=== PATIENT | male | born 1945 | race Caucasian/White ===

== ENCOUNTER 2021-06-23 08:35 | Inpatient (IN) ==
[2021-06-23] MEDS ORDERED: *HR* EPINEPHrine 1 MG/10 ML SYRINGE IVP ONE (08:50)
[2021-06-23] MEDS ORDERED: cefTRIAXone 1,000 MG in 0.9 % Sodium Chloride 10 ML IVP ONE (09:00)
[2021-06-23] MEDS ORDERED: Azithromycin 500 MG in 0.9 % Sodium Chloride 250 ML IVPB ONE (09:00)
[2021-06-23] MEDS ORDERED: Ipratropium/Albuterol Neb 3 ML IH ONE (09:01)
[2021-06-23] MEDS ORDERED: methylPREDNISolone 125 MG/2 ML VIAL IVP ONE (09:02)
[2021-06-23 09:15] LABS: VBG HCO3 13 mEq/L (21-27); VBG PCO2 45 mmHg (41-51); VBG PH 7.07 pH Units (7.32-7.42); VBG PO2 40 mmHg (25-50)
[2021-06-23 09:17] LABS: Hematocrit 45.3 % (37.5-50.1); Hemoglobin 15.2 g/dL (12.9-16.9); Lymphocytes # 5.5 K/mcL (0.6-4.6); Mean Corpuscular HGB Conc 33.6 g/dL (31.6-35.5); Mean Corpuscular Volume 107.3 fL (83.0-100.0); Mean Platelet Volume 12.1 fL (9.4-12.4); Platelet Count 136 K/mcL (140-400); Red Blood Count 4.22 M/mcL (4.19-5.50); Red Cell Distribution Width 13.6 % (11.5-14.5); White Blood Count 15.6 K/mcL (4.3-11.1)
[2021-06-23] MEDS: 0.9 % Sodium Chloride 1,000 ML IVC SCH ×2 (09:22→13:42)
[2021-06-23 09:26] LABS: INR 1.8
[2021-06-23] MEDS ORDERED: Isovue-370 500 ML BOTTLE IVP ONE ×2 (09:27→11:12)
[2021-06-23 09:28] LABS: Activated Partial Thrombo Time 35.5 Seconds (26.0-36.0)
[2021-06-23 09:39] LABS: Albumin 4.3 g/dL (3.5-5.7); Albumin/Globulin Ratio 2.4 (1.1-2.2); Bilirubin,Direct 0.8 mg/dL (0.0-0.2); Bilirubin,Indirect 1.8 mg/dL (0.0-1.0); Bilirubin,Total 2.6 mg/dL (0.3-1.0); Calcium 9.5 mg/dL (8.6-10.3); Globulin 1.8 g/dL (2.4-3.5); Magnesium 2.4 mg/dL (1.6-2.6); Phosphorous 6.8 mg/dL (2.7-4.5); Total Protein 6.1 g/dL (6.4-8.9); Troponin I 0.04 ng/mL (< 0.04)
[2021-06-23 09:45] LABS: Eosinophils # 0.2 K/mcL (0.0-0.6); Monocytes # 0.3 K/mcL (0.0-1.3); Neutrophils # 9.7 K/mcL (1.6-8.9)
[2021-06-23 09:46] LABS: Platelet Estimate Slight Decrease (Normal)
[2021-06-23 09:48] LABS: Large Platelets Present (Not Present)
[2021-06-23 09:49] LABS: Reactive Lymphocytes Present (Not Present)
[2021-06-23] MEDS ORDERED: Ondansetron 4 MG/2 ML VIAL IVP ONE (09:59)
[2021-06-23] MEDS ORDERED: *HR* FentaNYL (PF) 100 MCG/2 ML VIAL ONE (11:02)
[2021-06-23] MEDS ORDERED: Furosemide 40 MG/4 ML VIAL IVP ONE ×2 (11:09→23:04)
[2021-06-23] MEDS ORDERED: Perflutren Lipid Microsphere 1.3 ML in 0.9 % Sodium Chloride 8.7 ML IVP PRN (11:09)
[2021-06-23 11:14] LABS: ABG Base Excess -20 mEq/L (-2 to 3); ABG HCO3 11 mEq/L (21-27); ABG Oxygen Saturation 90 % (95-98); ABG PCO2 43 mmHg (35-45); ABG PH 7.01 pH Units (7.32-7.45); ABG PO2 87 mmHg (85-104); ABG TCO2 12 mEq/L (20-26); Blood Gas Modality ASSIST CONTROL; Blood Gas VT 450 cc
[2021-06-23] MEDS: Dexmedetomidine HCl 400 MCG/100 ML MLS IVC SCH ×3 (12:02→18:48)
[2021-06-23] MEDS ORDERED: Artificial Tears SOLN 15 ML BOTTLE BOTH EYES PRN (12:44)
[2021-06-23] MEDS ORDERED: Naloxone 0.4 MG/ML INJ IVP PRN (12:44)
[2021-06-23] MEDS ORDERED: Albuterol 2.5 MG/3 ML NEBULIZER IH PRN (12:50)
[2021-06-23] MEDS ORDERED: Vancomycin (wt based) 1,000 MG VIAL IVPB SCH (13:00)
[2021-06-23] MEDS: FentaNYL (PF) 1,000 MCG/100 ML IV.SOLN IVC SCH ×2 (13:33→19:21)
[2021-06-23] MEDS ORDERED: Sodium Bicarbonate 50 MEQ/50 ML VIAL IVP ONE (14:02)
[2021-06-23 14:17] LABS: Bilirubin,Urine Negative (Negative); Blood,Urine Large (Negative); Clarity,Urine Clear (Clear); Color,Urine Light-Yellow (Yellow); Glucose,Urine (UA) Normal (Normal); Granular Casts,Urine Few per lpf (None Seen); Hyaline Casts,Urine Moderate per lpf (None Seen); Ketones,Urine Negative (Negative); Leukocyte Esterase,Urine Negative (Negative); Mucus,Urine Few per lpf (None-Few); Nitrite,Urine Negative (Negative); Protein,Urine 50 mg/dL (Neg-Trace); RBC,Urine TNTC per hpf (0-3); Specific Gravity,Urine 1.018 (1.010-1.025); Sperm,Urine Present per hpf (None Seen); Squamous Epithelial Cell,Urine Few per hpf (None-Few); Transitional Epi Cells,Urine Few per hpf (None-Few); Urobilinogen,Urine Normal (Normal); WBC,Urine 0-3 per hpf (0-3)
[2021-06-23] MEDS ORDERED: *HR* Midazolam HCl 5 MG/5 ML VIAL IVP ONE ×3 (14:23→21:07)
[2021-06-23] MEDS ORDERED: Amiodarone Premix 150 MG/100 ML BAG IVPB ONE (15:59)
[2021-06-23] MEDS ORDERED: Amiodarone Premix 360 MG/200 ML BAG IVC ONE (15:59)
[2021-06-23] MEDS: Ipratropium/Albuterol Neb 3 ML IH SCH ×2 (16:04→20:51)
[2021-06-23] MEDS ORDERED: *HR* Heparin 5,000 UNIT/ML VIAL IVP PRN ×2 (17:35)
[2021-06-23] MEDS ORDERED: *HR* Heparin 5,000 UNIT/ML VIAL IVP ONE (17:35)
[2021-06-23] MEDS: methylPREDNISolone 125 MG/2 ML VIAL IVP SCH (17:44)
[2021-06-23] MEDS: Piperacillin/Tazobactam 3.375 GM in 0.9 % Sodium Chloride Mini Bag 100 ML IVPB SCH ×2 (17:46→23:09)
[2021-06-23] MEDS ORDERED: *HR* Heparin 5,000 UNIT/ML VIAL SQ SCH (18:00)
[2021-06-23] MEDS: Heparin 25,000UNIT/250ML 1/2NS 25,000 UNIT/250 ML IV.SOLN IVC SCH (18:26)
[2021-06-23] MEDS ORDERED: Dexmedetomidine HCl 400 MCG/100 ML MLS IVC ONE (18:31)
[2021-06-23] MEDS: Pantoprazole 40 MG VIAL IVP SCH (20:23)
[2021-06-23] MEDS: Artificial Tears SOLN 15 ML BOTTLE BOTH EYES SCH ×3 (20:23→23:09)
[2021-06-23 20:55] LABS: Influenza A PCR Negative (Negative); Influenza B PCR Negative (Negative); Resp. Syncytial Virus PCR Negative (Negative)
[2021-06-23 21:00] LABS: SARS-CoV-2 by PCR (In House) Negative (Negative)
[2021-06-23 21:54] LABS: ABG Base Excess -5 mEq/L (-2 to 3); ABG HCO3 19 mEq/L (21-27); ABG Oxygen Saturation 98 % (95-98); ABG PCO2 29 mmHg (35-45); ABG PH 7.41 pH Units (7.32-7.45); ABG PO2 98 mmHg (85-104); ABG TCO2 20 mEq/L (20-26); Blood Gas Modality AF; Blood Gas VT 450 cc
[2021-06-23] MEDS: Chlorhexidine Rinse 15 ML MOUTHWASH MM SCH (21:54)
[2021-06-23] MEDS: DOBUTamine 1,000 MG/250 ML BAG IVC SCH (21:56)
[2021-06-23 21:58] LABS: Basophils % 0.1 %; Immature Granulocytes % 0.4 % (0-4); Mean Corpuscular Hemoglobin 35.5 pg (28.0-33.3); Red Cell Distribution Width 13.4 % (11.5-14.5)
[2021-06-23 22:00] LABS: Hematocrit 40.4 % (37.5-50.1); Hemoglobin 13.8 g/dL (12.9-16.9); Immature Platelets 11.2 % (1.1-6.1); Lymphocytes # 2.6 K/mcL (0.6-4.6); Lymphocytes % 25.8 %; Mean Corpuscular HGB Conc 34.2 g/dL (31.6-35.5); Mean Corpuscular Volume 103.9 fL (83.0-100.0); Mean Platelet Volume 11.5 fL (9.4-12.4); Monocytes # 0.2 K/mcL (0.0-1.3); Monocytes % 2.4 %; Neutrophils # 7.2 K/mcL (1.6-8.9); Nucleated Red Blood Cells 0.2 /100 WBC (0); Red Blood Count 3.89 M/mcL (4.19-5.50); Segmented Neutrophils % 71.3 %; White Blood Count 10.1 K/mcL (4.3-11.1)
[2021-06-23 22:01] LABS: VBG Ionized Calcium 1.11 mmol/L (1.15-1.35)
[2021-06-23 22:07] LABS: INR 1.9; Prothrombin Time 21.1 Seconds (9.4-12.1)
[2021-06-23 22:10] LABS: Heparin anti-factor XA UFH 1.47 IU/mL (0.30-0.70)
[2021-06-23 22:19] LABS: Albumin 3.4 g/dL (3.5-5.7); Albumin/Globulin Ratio 2.6 (1.1-2.2); Bilirubin,Direct 0.4 mg/dL (0.0-0.2); Bilirubin,Indirect 0.8 mg/dL (0.0-1.0); Bilirubin,Total 1.2 mg/dL (0.3-1.0); Calcium 8.8 mg/dL (8.6-10.3); Globulin 1.3 g/dL (2.4-3.5); Magnesium 2.5 mg/dL (1.6-2.6); Potassium 4.2 mEq/L (3.5-5.1); Total Protein 4.7 g/dL (6.4-8.9)
[2021-06-23 22:20] LABS: Phosphorous 6.2 mg/dL (2.7-4.5)
[2021-06-23 22:23] LABS: Troponin I 0.05 ng/mL (< 0.04)
[2021-06-23 22:27] LABS: Activated Partial Thrombo Time > 360.0 Seconds (26.0-36.0)
[2021-06-23 22:30] LABS: Platelet Count 96 K/mcL (140-400); Smudge Cells Present (Not Present)
[2021-06-23] MEDS: Amiodarone Premix 360 MG/200 ML BAG IVC SCH (22:47)
[2021-06-24] MEDS: Ipratropium/Albuterol Neb 3 ML IH SCH ×6 (00:03→20:53)
[2021-06-24] MEDS: Dexmedetomidine HCl 400 MCG/100 ML MLS IVC SCH ×3 (02:22→14:34)
[2021-06-24 02:27] LABS: Basophils % 0.1 %; Hemoglobin 14.3 g/dL (12.9-16.9); Immature Granulocytes % 0.2 % (0-4); Lymphocytes # 2.5 K/mcL (0.6-4.6); Lymphocytes % 21.8 %; Mean Corpuscular HGB Conc 34.9 g/dL (31.6-35.5); Mean Corpuscular Hemoglobin 35.2 pg (28.0-33.3); Mean Platelet Volume 11.6 fL (9.4-12.4); Monocytes # 0.3 K/mcL (0.0-1.3); Monocytes % 2.7 %; Neutrophils # 8.4 K/mcL (1.6-8.9); Platelet Count 106 K/mcL (140-400); Red Blood Count 4.06 M/mcL (4.19-5.50); Red Cell Distribution Width 13.3 % (11.5-14.5); Segmented Neutrophils % 75.2 %; White Blood Count 11.2 K/mcL (4.3-11.1)
[2021-06-24 02:46] LABS: Albumin 3.5 g/dL (3.5-5.7); Albumin/Globulin Ratio 2.1 (1.1-2.2); Bilirubin,Direct 0.5 mg/dL (0.0-0.2); Bilirubin,Indirect 0.6 mg/dL (0.0-1.0); Bilirubin,Total 1.1 mg/dL (0.3-1.0); Calcium 8.8 mg/dL (8.6-10.3); Globulin 1.7 g/dL (2.4-3.5); Magnesium 2.3 mg/dL (1.6-2.6); Phosphorous 5.4 mg/dL (2.7-4.5); Potassium 3.5 mEq/L (3.5-5.1); Total Protein 5.2 g/dL (6.4-8.9)
[2021-06-24] MEDS: Artificial Tears SOLN 15 ML BOTTLE BOTH EYES SCH ×6 (03:25→23:45)
[2021-06-24] MEDS: FentaNYL (PF) 1,000 MCG/100 ML IV.SOLN IVC SCH ×2 (04:17→13:12)
[2021-06-24 04:22] LABS: ABG Base Excess 1 mEq/L (-2 to 3); ABG HCO3 25 mEq/L (21-27); ABG Oxygen Saturation 96 % (95-98); ABG PCO2 35 mmHg (35-45); ABG PH 7.46 pH Units (7.32-7.45); ABG PO2 77 mmHg (85-104); ABG TCO2 26 mEq/L (20-26); Blood Gas Modality AF; Blood Gas VT 450 cc
[2021-06-24] MEDS: methylPREDNISolone 125 MG/2 ML VIAL IVP SCH (04:59)
[2021-06-24] MEDS: Norepinephrine 4 MG/254 ML IV.SOLN IVC SCH (05:57)
[2021-06-24] MEDS ORDERED: *HR* Midazolam HCl 2 MG/2 ML VIAL IVP ONE (06:34)
[2021-06-24] MEDS ORDERED: *HR* Midazolam HCl 5 MG/5 ML VIAL IVP ONE (06:36)
[2021-06-24] MEDS: Pantoprazole 40 MG VIAL IVP SCH (07:30)
[2021-06-24] MEDS: Chlorhexidine Rinse 15 ML MOUTHWASH MM SCH ×2 (07:31→20:35)
[2021-06-24] MEDS: Piperacillin/Tazobactam 3.375 GM in 0.9 % Sodium Chloride Mini Bag 100 ML IVPB SCH ×3 (07:32→23:44)
[2021-06-24] MEDS ORDERED: *HR* Digoxin 0.5 MG/2 ML AMPUL IVP ONE (10:45)
[2021-06-24] MEDS: Amiodarone Premix 360 MG/200 ML BAG IVC SCH (10:46)
[2021-06-24] MEDS ORDERED: Potassium Chloride Elixir 20 MEQ/15 ML UDC GTUBE ONE (14:10)
[2021-06-24 15:06] LABS: Lactate Dehydrogenase 294 Units/L (140-271)
[2021-06-24 16:05] LABS: ABG PCO2 32 mmHg (35-45); ABG PH 7.36 pH Units (7.32-7.45); ABG PO2 200 mmHg (85-104)
[2021-06-24 16:06] LABS: ABG Base Excess -6 mEq/L (-2 to 3); ABG HCO3 18 mEq/L (21-27); ABG Oxygen Saturation 100 % (95-98); ABG TCO2 19 mEq/L (20-26)
[2021-06-24 18:24] LABS: Appearance of Pleural Fl Clear (Clear)
[2021-06-24 18:26] LABS: RBC,Pleural Fluid < 2000 RBC/mcL
[2021-06-24 18:45] LABS: Glucose,Pleural Fluid 140 mg/dL (No Ref Range); LDH,Pleural Fluid 74 Units/L (No Ref Range); Total Protein,Pleural Fluid < 2.0 g/dL
[2021-06-24] MEDS: Heparin 25,000UNIT/250ML 1/2NS 25,000 UNIT/250 ML IV.SOLN IVC SCH (19:51)
[2021-06-24 20:18] LABS: Basophils,Pleural Fluid 0 %; Eosinophils,Pleural Fluid 0 %
[2021-06-24] MEDS ORDERED: Vancomycin 1,500 MG/265 ML IV.SOLN IVPB ONE (21:28)
[2021-06-24] MEDS: Potassium Chloride 40 MEQ/200 ML BAG IVPB PRN ×2 (21:33→22:29)
[2021-06-24 21:36] LABS: Basophils % 0.1 %; Hematocrit 38.3 % (37.5-50.1); Hemoglobin 13.5 g/dL (12.9-16.9); Immature Granulocytes % 1.2 % (0-4); Lymphocytes % 16.6 %; Mean Corpuscular HGB Conc 35.2 g/dL (31.6-35.5); Mean Corpuscular Hemoglobin 35.3 pg (28.0-33.3); Mean Corpuscular Volume 100.3 fL (83.0-100.0); Mean Platelet Volume 11.1 fL (9.4-12.4); Monocytes # 0.4 K/mcL (0.0-1.3); Monocytes % 3.5 %; Neutrophils # 9.2 K/mcL (1.6-8.9); Platelet Count 111 K/mcL (140-400); Red Blood Count 3.82 M/mcL (4.19-5.50); Red Cell Distribution Width 13.7 % (11.5-14.5); Segmented Neutrophils % 78.6 %; White Blood Count 11.7 K/mcL (4.3-11.1)
[2021-06-24 21:53] LABS: Calcium 8.5 mg/dL (8.6-10.3); Potassium 3.1 mEq/L (3.5-5.1)
[2021-06-24] MEDS ORDERED: Furosemide 20 MG/2 ML VIAL IVP ONE (23:06)
[2021-06-25] MEDS: Ipratropium/Albuterol Neb 3 ML IH SCH ×6 (00:40→20:29)
[2021-06-25] MEDS: Amiodarone Premix 360 MG/200 ML BAG IVC SCH ×2 (00:53→12:40)
[2021-06-25 03:27] LABS: Hematocrit 38.5 % (37.5-50.1); Hemoglobin 13.5 g/dL (12.9-16.9); Immature Granulocytes % 0.7 % (0-4); Lymphocytes # 2.1 K/mcL (0.6-4.6); Lymphocytes % 16.7 %; Mean Corpuscular HGB Conc 35.1 g/dL (31.6-35.5); Mean Corpuscular Hemoglobin 35.8 pg (28.0-33.3); Mean Corpuscular Volume 102.1 fL (83.0-100.0); Mean Platelet Volume 11.1 fL (9.4-12.4); Monocytes # 0.4 K/mcL (0.0-1.3); Monocytes % 3.3 %; Neutrophils # 9.9 K/mcL (1.6-8.9); Platelet Count 111 K/mcL (140-400); Red Blood Count 3.77 M/mcL (4.19-5.50); Red Cell Distribution Width 13.7 % (11.5-14.5); Segmented Neutrophils % 79.3 %; White Blood Count 12.5 K/mcL (4.3-11.1)
[2021-06-25 03:42] LABS: Alanine Aminotransferase 157 Units/L (7-52); Albumin 3.3 g/dL (3.5-5.7); Albumin/Globulin Ratio 2.1 (1.1-2.2); Alkaline Phosphatase 52 Units/L (34-104); Aspartate Amino Transferase 105 Units/L (13-39); BUN/Creatinine Ratio 28 (6-26); Bilirubin,Direct 0.3 mg/dL (0.0-0.2); Bilirubin,Indirect 0.7 mg/dL (0.0-1.0); Blood Urea Nitrogen 37 mg/dL (8-23); Calcium 8.4 mg/dL (8.6-10.3); Carbon Dioxide 28 mEq/L (23-29); Chloride 96 mEq/L (98-107); Globulin 1.6 g/dL (2.4-3.5); Glucose 107 mg/dL (70-105); Magnesium 2.4 mg/dL (1.6-2.6); Osmolality,Calculated 289 (280-300); Phosphorous 3.5 mg/dL (2.7-4.5); Potassium 3.4 mEq/L (3.5-5.1); Sodium 135 mEq/L (136-145); Total Protein 4.9 g/dL (6.4-8.9); eGFR For African Americans > 60 (> 60); eGFR For Non-African Americans 53 (> 60)
[2021-06-25] MEDS: Potassium Chloride 40 MEQ/200 ML BAG IVPB PRN ×2 (03:56→04:57)
[2021-06-25] MEDS: Artificial Tears SOLN 15 ML BOTTLE BOTH EYES SCH ×2 (05:39→07:28)
[2021-06-25] MEDS: DOBUTamine 1,000 MG/250 ML BAG IVC SCH (05:58)
[2021-06-25] MEDS: Norepinephrine 4 MG/254 ML IV.SOLN IVC SCH (05:59)
[2021-06-25] MEDS: Piperacillin/Tazobactam 3.375 GM in 0.9 % Sodium Chloride Mini Bag 100 ML IVPB SCH ×2 (07:27→15:12)
[2021-06-25] MEDS: Chlorhexidine Rinse 15 ML MOUTHWASH MM SCH (07:28)
[2021-06-25] MEDS: Pantoprazole 40 MG VIAL IVP SCH (07:28)
[2021-06-25] MEDS ORDERED: *HR* Metoprolol 5 MG/5 ML VIAL IVP PRN (08:01)
[2021-06-25] MEDS ORDERED: MethylPREDNISolone 40 MG/ML VIAL IVP SCH (09:00)
[2021-06-25] MEDS: Furosemide 40 MG/4 ML VIAL IVP SCH (20:04)
[2021-06-25] MEDS: Apixaban 5 MG TABLET PO SCH (20:05)
[2021-06-25 20:48] LABS: BUN/Creatinine Ratio 28 (6-26); Blood Urea Nitrogen 30 mg/dL (8-23); Calcium 8.8 mg/dL (8.6-10.3); Carbon Dioxide 29 mEq/L (23-29); Chloride 100 mEq/L (98-107); Glucose 123 mg/dL (70-105); Osmolality,Calculated 292 (280-300); Sodium 137 mEq/L (136-145); Vancomycin,Random 8 mcg/mL; eGFR For African Americans > 60 (> 60); eGFR For Non-African Americans > 60 (> 60)
[2021-06-26] MEDS: Ipratropium/Albuterol Neb 3 ML IH SCH ×4 (00:16→11:24)
[2021-06-26] MEDS: Amiodarone Premix 360 MG/200 ML BAG IVC SCH ×2 (01:01→14:02)
[2021-06-26 04:28] LABS: Basophils % 0.1 %; Hematocrit 43.3 % (37.5-50.1); Hemoglobin 14.9 g/dL (12.9-16.9); Immature Granulocytes % 0.6 % (0-4); Lymphocytes # 2.5 K/mcL (0.6-4.6); Lymphocytes % 17.1 %; Mean Corpuscular HGB Conc 34.4 g/dL (31.6-35.5); Mean Corpuscular Hemoglobin 36.2 pg (28.0-33.3); Mean Corpuscular Volume 105.1 fL (83.0-100.0); Mean Platelet Volume 10.6 fL (9.4-12.4); Monocytes # 0.5 K/mcL (0.0-1.3); Monocytes % 3.5 %; Neutrophils # 11.6 K/mcL (1.6-8.9); Platelet Count 112 K/mcL (140-400); Red Blood Count 4.12 M/mcL (4.19-5.50); Red Cell Distribution Width 14.5 % (11.5-14.5); Segmented Neutrophils % 78.7 %; White Blood Count 14.7 K/mcL (4.3-11.1)
[2021-06-26 04:31] LABS: Alanine Aminotransferase 154 Units/L (7-52); Albumin 3.5 g/dL (3.5-5.7); Albumin/Globulin Ratio 1.9 (1.1-2.2); Alkaline Phosphatase 53 Units/L (34-104); Aspartate Amino Transferase 89 Units/L (13-39); BUN/Creatinine Ratio 29 (6-26); Bilirubin,Direct 0.3 mg/dL (0.0-0.2); Bilirubin,Indirect 0.7 mg/dL (0.0-1.0); Blood Urea Nitrogen 28 mg/dL (8-23); Calcium 8.7 mg/dL (8.6-10.3); Carbon Dioxide 32 mEq/L (23-29); Chloride 98 mEq/L (98-107); Globulin 1.8 g/dL (2.4-3.5); Glucose 124 mg/dL (70-105); Magnesium 2.3 mg/dL (1.6-2.6); Osmolality,Calculated 293 (280-300); Phosphorous 3.1 mg/dL (2.7-4.5); Potassium 3.7 mEq/L (3.5-5.1); Sodium 138 mEq/L (136-145); Total Protein 5.3 g/dL (6.4-8.9); eGFR For African Americans > 60 (> 60); eGFR For Non-African Americans > 60 (> 60)
[2021-06-26] MEDS: Potassium Chloride 40 MEQ/200 ML BAG IVPB PRN ×2 (05:31→06:33)
[2021-06-26] MEDS: Furosemide 40 MG/4 ML VIAL IVP SCH ×2 (09:20→22:01)
[2021-06-26] MEDS: Apixaban 5 MG TABLET PO SCH ×2 (09:21→22:01)
[2021-06-26] MEDS ORDERED: Ipratropium/Albuterol Neb 3 ML IH PRN (11:46)
[2021-06-26 12:02] LABS: Fluid Source for Cholesterol PLEURAL FLUID
[2021-06-26 12:50] LABS: Cholesterol,Body Fluid 10 mg/dL
[2021-06-26 21:22] LABS: BUN/Creatinine Ratio 29 (6-26); Blood Urea Nitrogen 35 mg/dL (8-23); Calcium 8.9 mg/dL (8.6-10.3); Carbon Dioxide 32 mEq/L (23-29); Chloride 99 mEq/L (98-107); Glucose 122 mg/dL (70-105); Osmolality,Calculated 295 (280-300); Potassium 4.1 mEq/L (3.5-5.1); Sodium 138 mEq/L (136-145); eGFR For African Americans > 60 (> 60); eGFR For Non-African Americans 59 (> 60)
[2021-06-27 02:31] LABS: Basophils % 0.1 %; Hematocrit 44.1 % (37.5-50.1); Mean Corpuscular Volume 104.5 fL (83.0-100.0); Red Blood Count 4.22 M/mcL (4.19-5.50)
[2021-06-27 02:33] LABS: Hemoglobin 14.9 g/dL (12.9-16.9); Immature Granulocytes % 0.6 % (0-4); Immature Platelets 5.6 % (1.1-6.1); Lymphocytes # 3.2 K/mcL (0.6-4.6); Lymphocytes % 23.9 %; Mean Corpuscular HGB Conc 33.8 g/dL (31.6-35.5); Mean Corpuscular Hemoglobin 35.3 pg (28.0-33.3); Mean Platelet Volume 10.6 fL (9.4-12.4); Monocytes # 0.5 K/mcL (0.0-1.3); Monocytes % 3.4 %; Neutrophils # 9.5 K/mcL (1.6-8.9); Nucleated Red Blood Cells 0.2 /100 WBC (0); Platelet Count 116 K/mcL (140-400); Red Cell Distribution Width 14.6 % (11.5-14.5); White Blood Count 13.2 K/mcL (4.3-11.1)
[2021-06-27 02:44] LABS: BUN/Creatinine Ratio 28 (6-26); Blood Urea Nitrogen 34 mg/dL (8-23); Calcium 8.8 mg/dL (8.6-10.3); Carbon Dioxide 34 mEq/L (23-29); Chloride 98 mEq/L (98-107); Glucose 109 mg/dL (70-105); Magnesium 2.2 mg/dL (1.6-2.6); Osmolality,Calculated 296 (280-300); Phosphorous 2.3 mg/dL (2.7-4.5); Potassium 4.1 mEq/L (3.5-5.1); Sodium 139 mEq/L (136-145); eGFR For African Americans > 60 (> 60); eGFR For Non-African Americans 58 (> 60)
[2021-06-27] MEDS: Amiodarone Premix 360 MG/200 ML BAG IVC SCH ×2 (03:23→16:49)
[2021-06-27] MEDS: Furosemide 40 MG/4 ML VIAL IVP SCH ×2 (08:21→18:09)
[2021-06-27] MEDS: Apixaban 5 MG TABLET PO SCH ×2 (08:21→20:58)
[2021-06-28 05:45] LABS: Basophils % 0.1 %; Eosinophils # 0.1 K/mcL (0.0-0.6); Eosinophils % 0.4 %; Hematocrit 44.6 % (37.5-50.1); Immature Granulocytes % 0.3 % (0-4); Lymphocytes # 4.1 K/mcL (0.6-4.6); Lymphocytes % 33.8 %; Mean Corpuscular HGB Conc 33.6 g/dL (31.6-35.5); Mean Corpuscular Hemoglobin 35.4 pg (28.0-33.3); Mean Corpuscular Volume 105.2 fL (83.0-100.0); Mean Platelet Volume 10.6 fL (9.4-12.4); Monocytes # 0.4 K/mcL (0.0-1.3); Monocytes % 3.2 %; Neutrophils # 7.5 K/mcL (1.6-8.9); Platelet Count 112 K/mcL (140-400); Red Blood Count 4.24 M/mcL (4.19-5.50); Red Cell Distribution Width 14.2 % (11.5-14.5); Segmented Neutrophils % 62.2 %; White Blood Count 12.1 K/mcL (4.3-11.1)
[2021-06-28] MEDS: Amiodarone Premix 360 MG/200 ML BAG IVC SCH ×2 (06:05→20:14)
[2021-06-28 06:12] LABS: Alanine Aminotransferase 124 Units/L (7-52); Albumin 3.5 g/dL (3.5-5.7); Albumin/Globulin Ratio 2.2 (1.1-2.2); Alkaline Phosphatase 65 Units/L (34-104); Aspartate Amino Transferase 67 Units/L (13-39); BUN/Creatinine Ratio 31 (6-26); Bilirubin,Total 1.1 mg/dL (0.3-1.0); Blood Urea Nitrogen 31 mg/dL (8-23); Carbon Dioxide 33 mEq/L (23-29); Chloride 99 mEq/L (98-107); Globulin 1.6 g/dL (2.4-3.5); Glucose 115 mg/dL (70-105); Magnesium 2.1 mg/dL (1.6-2.6); Osmolality,Calculated 295 (280-300); Phosphorous 2.3 mg/dL (2.7-4.5); Sodium 139 mEq/L (136-145); Total Protein 5.1 g/dL (6.4-8.9); eGFR For African Americans > 60 (> 60); eGFR For Non-African Americans > 60 (> 60)
[2021-06-28] MEDS: Apixaban 5 MG TABLET PO SCH (09:00)
[2021-06-28] MEDS: Furosemide 40 MG/4 ML VIAL IVP SCH (09:01)
[2021-06-28] MEDS: Metoprolol XL (24 HR) Succ 25 MG TAB.ER.24H PO SCH (12:32)
[2021-06-28] MEDS: Aspirin Enteric Coated 81 MG Tablet PO SCH (12:33)
[2021-06-28] MEDS ORDERED: *HR* Heparin 5,000 UNIT/ML VIAL IVP PRN ×2 (15:00)
[2021-06-28] MEDS ORDERED: Heparin 25,000UNIT/250ML 1/2NS 25,000 UNIT/250 ML IV.SOLN IVC SCH (15:15)
[2021-06-28 16:21] LABS: Hematocrit 47.1 % (37.5-50.1); Hemoglobin 15.7 g/dL (12.9-16.9); Immature Platelets 6.3 % (1.1-6.1); Mean Corpuscular HGB Conc 33.3 g/dL (31.6-35.5); Mean Corpuscular Hemoglobin 35.1 pg (28.0-33.3); Mean Corpuscular Volume 105.4 fL (83.0-100.0); Mean Platelet Volume 10.7 fL (9.4-12.4); Red Blood Count 4.47 M/mcL (4.19-5.50); Red Cell Distribution Width 14.2 % (11.5-14.5); White Blood Count 12.3 K/mcL (4.3-11.1)
[2021-06-28 16:27] LABS: INR 1.4; Prothrombin Time 15.8 Seconds (9.4-12.1)
[2021-06-28 16:31] LABS: Heparin anti-factor XA UFH 1.22 IU/mL (0.30-0.70)
[2021-06-28 17:10] LABS: Activated Partial Thrombo Time 34.6 Seconds (26.0-36.0)
[2021-06-28] MEDS: Heparin 25,000UNIT/250ML 1/2NS 25,000 UNIT/250 ML IV.SOLN IVC SCH (17:21)
[2021-06-29 05:00] LABS: Basophils % 0.2 %; Eosinophils # 0.1 K/mcL (0.0-0.6); Eosinophils % 0.8 %; Hematocrit 46.2 % (37.5-50.1); Hemoglobin 15.7 g/dL (12.9-16.9); Immature Granulocytes % 0.4 % (0-4); Lymphocytes # 4.8 K/mcL (0.6-4.6); Lymphocytes % 38.5 %; Mean Corpuscular Hemoglobin 35.5 pg (28.0-33.3); Mean Corpuscular Volume 104.5 fL (83.0-100.0); Mean Platelet Volume 10.6 fL (9.4-12.4); Monocytes # 0.4 K/mcL (0.0-1.3); Monocytes % 3.2 %; Platelet Count 126 K/mcL (140-400); Red Blood Count 4.42 M/mcL (4.19-5.50); Segmented Neutrophils % 56.9 %; White Blood Count 12.4 K/mcL (4.3-11.1)
[2021-06-29 06:23] LABS: BUN/Creatinine Ratio 28 (6-26); Blood Urea Nitrogen 29 mg/dL (8-23); Calcium 8.9 mg/dL (8.6-10.3); Carbon Dioxide 32 mEq/L (23-29); Chloride 101 mEq/L (98-107); Glucose 108 mg/dL (70-105); Osmolality,Calculated 296 (280-300); Phosphorous 2.5 mg/dL (2.7-4.5); Potassium 4.4 mEq/L (3.5-5.1); Sodium 140 mEq/L (136-145); eGFR For African Americans > 60 (> 60); eGFR For Non-African Americans > 60 (> 60)
[2021-06-29] MEDS: Aspirin Enteric Coated 81 MG Tablet PO SCH (08:52)
[2021-06-29] MEDS: Metoprolol XL (24 HR) Succ 25 MG TAB.ER.24H PO SCH (08:52)
[2021-06-29] MEDS: Furosemide 40 MG TABLET PO SCH (08:52)
[2021-06-29] MEDS: Amiodarone Premix 360 MG/200 ML BAG IVC SCH ×2 (09:03→22:26)
[2021-06-29] MEDS ORDERED: Nitroglycerin 1,000 MCG/5 ML VIAL IV ONE (13:43)
[2021-06-29] MEDS ORDERED: ISOVUE-370 200 ML INFUS..BTL ONE (13:43)
[2021-06-29] MEDS ORDERED: Heparin 1,000 UNITS/500 mL 500 ML ONE (13:43)
[2021-06-29] MEDS ORDERED: *HR* Heparin 10,000 UNIT/10 ML VIAL ONE (13:43)
[2021-06-29] MEDS ORDERED: 0.9 % Sodium Chloride 2,000 ML ONE (13:43)
[2021-06-29] MEDS ORDERED: *HR* Midazolam HCl 2 MG/2 ML VIAL ONE (14:02)
[2021-06-29] MEDS ORDERED: *HR* FentaNYL (PF) 100 MCG/2 ML VIAL ONE (14:02)
[2021-06-29] MEDS: Heparin 25,000UNIT/250ML 1/2NS 25,000 UNIT/250 ML IV.SOLN IVC SCH ×2 (19:01→20:51)
[2021-06-30 04:10] LABS: Basophils % 0.2 %; Eosinophils % 0.3 %; Hematocrit 47.2 % (37.5-50.1); Hemoglobin 16.1 g/dL (12.9-16.9); Immature Granulocytes % 0.5 % (0-4); Mean Corpuscular HGB Conc 34.1 g/dL (31.6-35.5); Mean Corpuscular Hemoglobin 35.3 pg (28.0-33.3); Mean Corpuscular Volume 103.5 fL (83.0-100.0); Mean Platelet Volume 11.2 fL (9.4-12.4); Monocytes # 0.3 K/mcL (0.0-1.3); Monocytes % 2.6 %; Neutrophils # 8.3 K/mcL (1.6-8.9); Platelet Count 119 K/mcL (140-400); Red Blood Count 4.56 M/mcL (4.19-5.50); Red Cell Distribution Width 13.8 % (11.5-14.5); Segmented Neutrophils % 65.4 %; White Blood Count 12.7 K/mcL (4.3-11.1)
[2021-06-30 04:18] LABS: BUN/Creatinine Ratio 26 (6-26); Blood Urea Nitrogen 31 mg/dL (8-23); Calcium 9.2 mg/dL (8.6-10.3); Carbon Dioxide 32 mEq/L (23-29); Chloride 100 mEq/L (98-107); Glucose 100 mg/dL (70-105); Magnesium 2.1 mg/dL (1.6-2.6); Osmolality,Calculated 293 (280-300); Potassium 4.3 mEq/L (3.5-5.1); Sodium 138 mEq/L (136-145); eGFR For African Americans > 60 (> 60); eGFR For Non-African Americans > 60 (> 60)
[2021-06-30] MEDS: Metoprolol XL (24 HR) Succ 25 MG TAB.ER.24H PO SCH (08:10)
[2021-06-30] MEDS: Furosemide 40 MG TABLET PO SCH (08:10)
[2021-06-30] MEDS: lisinopriL 5 MG TABLET PO SCH (08:10)
[2021-06-30] MEDS: Aspirin Enteric Coated 81 MG Tablet PO SCH (08:10)
[2021-06-30] MEDS: Apixaban 5 MG TABLET PO SCH ×2 (08:54→21:40)
[2021-07-01] MEDS: Furosemide 40 MG TABLET PO SCH (07:58)
[2021-07-01] MEDS: Apixaban 5 MG TABLET PO SCH ×2 (07:58→20:06)
[2021-07-01] MEDS: Metoprolol XL (24 HR) Succ 25 MG TAB.ER.24H PO SCH (07:58)
[2021-07-01] MEDS: Aspirin Enteric Coated 81 MG Tablet PO SCH (07:58)
[2021-07-01] MEDS: lisinopriL 5 MG TABLET PO SCH (07:58)
[2021-07-02] MEDS ORDERED: Furosemide 40 MG TABLET PO SCH (09:00)
[2021-07-02 09:28] LABS: BUN/Creatinine Ratio 29 (6-26); Blood Urea Nitrogen 33 mg/dL (8-23); Calcium 9.2 mg/dL (8.6-10.3); Carbon Dioxide 30 mEq/L (23-29); Chloride 102 mEq/L (98-107); Glucose 103 mg/dL (70-105); Osmolality,Calculated 290 (280-300); Potassium 4.5 mEq/L (3.5-5.1); Sodium 136 mEq/L (136-145); eGFR For African Americans > 60 (> 60); eGFR For Non-African Americans > 60 (> 60)
[2021-07-02] MEDS: Aspirin Enteric Coated 81 MG Tablet PO SCH (09:42)
[2021-07-02] MEDS: Apixaban 5 MG TABLET PO SCH ×2 (09:42→20:12)
[2021-07-02] MEDS: Metoprolol XL (24 HR) Succ 25 MG TAB.ER.24H PO SCH (13:07)
[2021-07-03 04:07] LABS: BUN/Creatinine Ratio 33 (6-26); Blood Urea Nitrogen 34 mg/dL (8-23); Calcium 8.6 mg/dL (8.6-10.3); Carbon Dioxide 28 mEq/L (23-29); Chloride 103 mEq/L (98-107); Glucose 95 mg/dL (70-105); Magnesium 2.1 mg/dL (1.6-2.6); Osmolality,Calculated 287 (280-300); Potassium 4.4 mEq/L (3.5-5.1); Sodium 135 mEq/L (136-145); eGFR For African Americans > 60 (> 60); eGFR For Non-African Americans > 60 (> 60)
[2021-07-03] MEDS: Apixaban 5 MG TABLET PO SCH ×2 (08:57→19:45)
[2021-07-03] MEDS: Metoprolol XL (24 HR) Succ 25 MG TAB.ER.24H PO SCH (08:57)
[2021-07-03] MEDS: Aspirin Enteric Coated 81 MG Tablet PO SCH (08:57)
[2021-07-04] MEDS: Aspirin Enteric Coated 81 MG Tablet PO SCH (07:38)
[2021-07-04] MEDS: Metoprolol XL (24 HR) Succ 25 MG TAB.ER.24H PO SCH (07:38)
[2021-07-04] MEDS: Apixaban 5 MG TABLET PO SCH ×2 (07:38→19:44)
[2021-07-04] MEDS: Acetaminophen 325 MG TABLET PO PRN ×2 (14:03→20:17)
[2021-07-05 07:34] VITALS: TEMP 97.4
[2021-07-05] MEDS: Metoprolol XL (24 HR) Succ 25 MG TAB.ER.24H PO SCH (08:05)
[2021-07-05] MEDS: Apixaban 5 MG TABLET PO SCH (08:05)
[2021-07-05] MEDS: Aspirin Enteric Coated 81 MG Tablet PO SCH (08:05)
[2021-07-05 11:49] VITALS: BP 115/67; PULSE 64; O2SAT 97
[2021-07-05 12:10] LABS: Influenza A PCR Negative (Negative); Influenza B PCR Negative (Negative); Resp. Syncytial Virus PCR Negative (Negative)
[2021-07-05 12:11] LABS: SARS-CoV-2 by PCR (In House) Negative (Negative)
== END 2021-07-05 13:00 | disposition other institution (70) | DRG 208 ==
LOC: EMEROOARM 08:35 → SUATTDRO 15:25 → ICNU 15:25 → 2NENU 06-26 13:48
PROVIDERS: ADMIT Pediatrics; ATTEND Internal Medicine